=== PATIENT | male | born 1995 | race Caucasian/White ===

== ENCOUNTER 2017-10-19 21:05 | Emergency (ER) | payer SELFPAY ==
[2017-10-19 21:07] VITALS: BP 132/76; PULSE 94; RESP 18; TEMP 36.8; O2SAT 97; BMI 19.5
--- NOTE | 2017-10-19 21:20 | ED.VISSUMM ---
- ER Visit Summary Date of Service: 10/19/17 Chief Complaint: Infected tattoo History of Present Illness: The patient is a 22 M with no primary care physician. Reports that he has had a 10 to that has been worked on his left forearm for quite some time. Reports that today he noticed that there were small pustules. Reports he is a throbbing pain is 3 out of 10 severity. He denies any fever, chills, nausea, or vomiting. Physical Examination: Vitals: Stable. Afebrile. General: Well-nourished and well-developed. Head: Normocephalic atraumatic. Neck: Supple, no lymphadenopathy. No JVD. Nontender. Cardiovascular: Regular rate and rhythm. No murmurs. Respiratory: No respiratory distress. Clear to auscultation bilaterally. Abdominal: Soft, nontender, nondistended, normal bowel sounds. No guarding, rebound, or peritoneal signs. Back: Nontender. Extremities: He has approximately 5 2-3 mm pustules over the back of his left forearm. There is no surrounding induration or erythema. Skin: Normal color, no rash. Neurologic: Alert and oriented ?3. Cranial nerves II through XII are intact. Normal strength and sensation. Psych: Normal affect. Emergency Department Course and Treatment: Patient was given a dose of doxycycline. Treatment Plan: Patient will be discharged with doxycycline and Bactroban. Instructed to use warm compresses. Follow-up the [facility] in 2 days for a wound check. Return to the emergency department for any worsening symptoms. Disposition: To home in improved and stable condition. Impression: 1. Infected tattoo left forearm. This note was generated with [employer] dictation software. It may contain incorrect words, spelling, and punctuation that were not noted in review of the chart prior to signing ED Disposition - Plan for ED Patient: Disposition: Home or Assisted Living Chief Complaint: Upper Extremity Injury Instructions: ED Staph Infec Abx Tx Only Prescriptions: Doxycycline Monohydrate 100 mg PO BID #20 capsule Mupirocin Calcium [Bactroban] 30 gm TP 4X/DAY #1 tube Referrals: Jennifer Pelayo [NON-STAFF] - 2 Days for wound check
[2017-10-19] MEDS: Naproxen 250 MG Tablet 500 MG PO (21:36)
[2017-10-19] MEDS: Doxycycline 100 MG CAPSULE PO (21:36)
== END 2017-10-19 21:43 | disposition home or self-care (01) ==
PROVIDERS: Emergency Provider Emergency Medicine
DX: L08.89 Other specified local infections of the skin and subcutaneous tissue (principal); Z72.0 Tobacco use
CPT/HCPCS: 99283

== ENCOUNTER 2020-09-01 15:28 | Emergency (ER) | payer MEDICAID, SELFPAY ==
[2020-09-01 15:29] VITALS: BP 134/54; PULSE 68; RESP 16; TEMP 36.2; O2SAT 95; BMI 24.8
--- NOTE | 2020-09-01 15:40 | ED.VIS.GEN ---
History of Present Illness Chief Complaint: Upper Extremity Injury Narrative: This patient is a 25-year-old male who presents with right forearm wrist and hand pain. He complains of pain beginning in the mid forearm on the right side down to the wrist and into the fourth and fifth fingers of the right hand. He also complains of feeling like he is having some spasm. He does note that he woke when he had been sleeping with his head on his right forearm prior to the onset of symptoms. No other injury. No weakness. He reports he has had similar symptoms in the past. Past Medical History - Allergies and Home Meds Allergies/Adverse Reactions: Allergies amoxicillin trihydrate [From Augmentin] Allergy (Verified 09/01/20 15:29) Rash potassium clavulanate [From Augmentin] Allergy (Verified 09/01/20 15:29) Rash Primary Care Physician: Care Physician,No Primary [Primary Care Provider] - Past Medical History: None Smoking Status: Current every day smoker Review of Systems All systems negative except as indicated General: Denies: Fever Eyes: Denies: Visual changes - bilaterally ENT: Denies: Bilateral ear pain Cardiovascular: Denies: Chest pain Respiratory: Denies: Dyspnea Gastrointestinal: Denies: Vomiting Musculoskeletal: Reports: Extremity Pain Skin: Denies: Rash Neurological: Denies: Headache Hematologic: Denies: Easy bruising Allergy: Denies: Uticaria Physical Exam Vital Signs/Narrative: Vital Signs Temp Pulse Resp BP Pulse Ox 09/01/20 15:29 97.1 F L 68 16 134/54 H 95 Inital Vital Signs reviewed: Yes General: Well nourished Head: Normocephalic Eyes: EOMI ENT: Moist mucous membranes Neck: Supple Cardiovascular: Regular rate Respiratory: No distress Extremities: - - Patient has some mild tenderness in the right forearm he has active full range of motion of the right elbow wrist and hand he has normal strength and sensation easily palpable radial and ulnar pulses with brisk capillary refill Skin: Normal color Neurological: Alert Psychological: Normal affect Diagnostic/Tx/Re-eval - Medical Decision Making Patient's presentation is most consistent with an ulnar neuropathy. He does note that he had slept with his head resting on his right forearm which may have triggered his symptoms. We will treat supportively with anti-inflammatories and a wrist splint as needed for comfort but he was advised that if symptoms continue to follow-up as an outpatient. He is agreeable this plan and the patient was discharged. ED Disposition - Plan for ED Patient: Disposition: Home or Assisted Living Diagnosis: Ulnar neuropathy, Wrist pain Instructions: ED Ulnar Nerve Palsy Prescriptions: Naproxen [Naprosyn] 500 mg PO BID #20 tablet Prescription Printed Referrals: Care Physician,No Primary [Primary Care Provider] - Jef Stockton MD [STAFF PHYSICIAN] - Additional Instructions: Wear splint as needed for comfort. Take all medications as prescribed. If symptoms do not improve follow-up with orthopedics.
== END 2020-09-01 15:54 | disposition home or self-care (01) ==
LOC: ED 15:47
PROVIDERS: Emergency Provider Emergency Medicine
DX: G56.21 Lesion of ulnar nerve, right upper limb (principal); M25.531 Pain in right wrist; F17.200 Nicotine dependence, unspecified, uncomplicated
CPT/HCPCS: 99283

== ENCOUNTER 2020-12-13 10:28 | Emergency (ER) | payer MEDICAID, SELFPAY ==
[2020-12-13 10:29] VITALS: BP 140/98; PULSE 107; RESP 18; TEMP 36.2; O2SAT 97; BMI 21.1
--- NOTE | 2020-12-13 10:36 | RAD_ITS ---
STUDY: X-RAY - RIGHT ANKLE REASON FOR EXAM: Male, 25 years old. Medial right ankle pain following twisting injury. TECHNIQUE: 3 view(s) of the ankle. COMPARISON: None. FINDINGS: Normal visualized distal tibia and fibula. Normal medial and lateral malleoli. Normal tibiotalar articulation and ankle mortise. Normal visualized talus and calcaneus. The visualized subtalar, talonavicular, calcaneocuboid and tarsal articulations are normal. The soft tissue structures are unremarkable. RAD/Ankle min 3 Views IMPRESSION: Normal x-ray examination of the ankle. Electronically Signed: Ender Pederson MD at 11:03 EDT , Service support ,
--- NOTE | 2020-12-13 10:37 | ED.VIS.LOWEX ---
HPI History of Present Illness Chief Complaint: Lower Extremity Injury Informant: patient Narrative Narrative: Patient complains of primarily medial ankle pain. He states this has been going on a while. He works in fast food. He states he rolls his ankle several times a day and has been doing this for a while. No numbness tingling or weakness. He is never had a documented fracture. He also states he has flatfeet but he does not have pain on the sole of his feet. Walking and twisting the ankle makes it worse. Rest makes it better. No history of gout. No recent infections. Patient did not denies past medical history other than ADHD. No medications including no meds for ADHD since 18 years old. Allergy to amoxicillin/Augmentin PFSH PFSH Home Medications naproxen 500 mg PO BID #14 tab 12/13/20 [Rx Last Taken Unknown] Allergy/AdvReac Type Severity Reaction Status Date / Time amoxicillin trihydrate Allergy Rash Verified 12/13/20 10:29 [From Augmentin] potassium clavulanate Allergy Rash Verified 12/13/20 10:29 [From Augmentin] Social History Smoking Status: Current every day smoker tobacco type: cigarettes ROS ROS ED Constitutional Constitutional ED: Denies chills or fever(s) Cardiovascular Cardiovascular: Denies chest pain Respiratory/Chest Respiratory/Chest: Denies cough or dyspnea Musculoskeletal Musculoskeletal: Reports arthralgias; Denies back pain or neck pain Integumentary Denies Abrasions or rash Neurologic Neurologic: Denies paresthesias or weakness Hematologic/Lymphatic Hematologic/Lymphatic: Denies easy bleeding or easy bruising EXAM Physical Exam Const Vital Signs: 12/13/20 10:29 Temperature 97.1 F L Temperature Source Temporal Pulse Rate 107 H Respiratory Rate 18 Blood Pressure 140/98 H Blood Pressure Mean 112 Pulse Ox 97 Oxygen Delivery Method Room Air Positive well nourished and well developed General Appearance ED: well developed HEENT normocephalic and atraumatic Resp normal respiratory effort Extremity normal to inspection Extremity Narrative: Patient does have some tenderness to the posterior edge of the knee medial malleolus. No swelling. No abrasions or redness. No pain with passive motion. No tenderness on the sole of the foot. No fifth metatarsal tenderness. Achilles is intact, palpable, normal Hernandez's test. General Extremety ED: Negative for cyanosis or edema General Extremity: Negative for cyanosis or edema Neuro Sensorium / Orientation: alert; Negative for confused MDM MDM MDM Narrative Medical decision making narrative: Three-view x-ray of patient's right ankle looked at by me and read by radiology shows no acute process. His ankle is stable to inversion eversion and drawer. There is some mild tenderness medially. Achilles is also intact. I will give the patient an Aircast to add stability to him. Because he rolls this ankle so frequently, I have recommended orthopedic follow-up. I will also give him a short prescription of Naprosyn for soreness. Radiography Diagnostic Testing: Radiology Impression Ankle X-Ray 12/13/20 10:36 IMPRESSION: Normal x-ray examination of the ankle. Electronically Signed: Ender Pederson MD at 11:03 EDT , Service support , Discharge Plan Triage Chief Complaint: Lower Extremity Injury ED Provider: Victor M Holman Dx/Rx/DC Orders Clinical Impression: Injury of right ankle Instructions: ED Ankle Sprain (Adult) Prescriptions: New naproxen 500 mg tablet 500 mg PO BID Qty: 14 RF: 0 Primary Care Provider: Care Physician,No Primary Referrals: Sita Degroot DPM [STAFF PHYSICIAN] - 3-5 Days Care Physician,No Primary [Primary Care Provider] - Disposition Disposition: Home, Self Care
== END 2020-12-13 11:46 | disposition home or self-care (01) ==
PROVIDERS: Emergency Provider Emergency Medicine
DX: S99.911A Unspecified injury of right ankle, initial encounter (principal); F17.210 Nicotine dependence, cigarettes, uncomplicated; X50.1XXA Overexertion from prolonged static or awkward postures, initial encounter
CPT/HCPCS: 73610; 99283

== ENCOUNTER 2021-11-01 22:10 | Emergency (ER) | payer MEDICAID, SELFPAY ==
[2021-11-01 22:11] VITALS: BP 119/76; PULSE 115; RESP 16; TEMP 36.9; O2SAT 98; BMI 21.2
--- NOTE | 2021-11-01 22:30 | ED.VIS.LOWEX ---
HPI History of Present Illness HPI Narrative: 19-year-old male seen past medical history about an hour ago he was playing basketball came down and injured his ankle primarily complaining of pain in the right lateral posterior ankle. Able to ambulate. No prior significant history of surgery to that ankle. No other injuries. Chief Complaint: Lower Extremity Injury Informant: patient Occured/Mechanism Mechanism/Context: Yes injury Onset/Context/Timing Onset: Today and Hours Context: Sudden Onset Timing: Continuous Quality of Pain: Sharp Current Severity: Mild Maximum Severity: Mild Associated Symptoms Associated Symptoms: Negative for Parasthesia, Weakness and Loss of Funtion Narrative Narrative: 25-year-old male right ankle injury. Playing basketball. Twisted it. Prior similar symptoms: No Recent Illness/Hospitalization: No PFSH PFSH Medical History Anxiety Depression Smoker Home Medications naproxen 500 mg PO BID #14 tab 12/13/20 [Rx Last Taken Unknown] Allergy/AdvReac Type Severity Reaction Status Date / Time amoxicillin trihydrate Allergy Rash Verified 11/01/21 22:11 [From Augmentin] potassium clavulanate Allergy Rash Verified 11/01/21 22:11 [From Augmentin] Social History Smoking Status: Current every day smoker tobacco type: cigarettes ROS ROS ED ROS Narrative No recent illness. Review of Systems ROS Unobtainable: Denies due to encephalopathy Constitutional Constitutional ED: Denies fever(s) Eyes Eyes: Denies change in vision ENT ENT ED: Denies ear pain Cardiovascular Cardiovascular: Denies chest pain Respiratory/Chest Respiratory/Chest: Denies cough or dyspnea Gastrointestinal Gastrointestinal: Denies abdominal pain Genitourinary Genitourinary ED: Denies dysuria Musculoskeletal Musculoskeletal: Denies myalgias Integumentary Denies rash Neurologic Neurologic: Denies headache(s) Psychiatric Psychiatric: Denies depression Endocrine Endocrinology: Denies polyuria Hematologic/Lymphatic Hematologic/Lymphatic: Denies easy bruising Allergic/Immunologic Allergic/Immunologic ED: Denies urticaria EXAM Physical Exam Narrative Exam Narrative: 26-year-old male no acute distress. Vital signs stable afebrile. H EENT exam unremarkable atraumatic. C-spine nontender. Lungs are clear. Heart regular rate and rhythm. Chest wall nontender. Abdomen soft nontender. Pelvic girdle intact. Moving all 4 extremities. Neurovascular intact. No deformity. No significant swelling. Normal range of motion. Right hip and knee are nontender. Right lateral ankle and posterior ankle mild tenderness. No swelling. Achilles tendon intact. Dorsi and plantar flexion intact. DP pulse intact. No gross bony deformities. No significant swelling. Foot nontender able to wiggle his toes. Normal touch sensation. Const Vital Signs: 11/01/21 22:11 Temperature 98.5 F Temperature Source Temporal Pulse Rate 115 H Respiratory Rate 16 Blood Pressure 119/76 Blood Pressure Mean 90 Pulse Ox 98 Oxygen Delivery Method Room Air Positive well nourished and well developed; Negative for obese, cachectic, contractures or unkempt General Appearance ED: well developed and NAD; Negative for unkempt, cachectic or contractures Nutritional Appearance: Negative for cachectic or obese HEENT Reports moist mucous membranes normocephalic and atraumatic; Negative for trauma or tenderness Eyes PERRL Neck full ROM and supple Thyroid: Negative for tender Chest Wall inspection of chest normal and palpation of chest normal Resp normal respiratory effort, no retractions and clear to auscultation bilaterally Auscultation: Negative for rales, rhonchi or wheezes Cardio regular rate, regular rhythm, S1 normal heart sound, S2 normal heart sound and no murmurs GI non-tender, non-distended and no masses Auscultation: normoactive bowel sounds Palpation: soft; Negative for tender, guarding or rebound tenderness present Back/Spine no CVA tenderness General Back: CVA tenderness Cervical Spine: Negative for cervical spine tenderness Thoracic Spine / Upper Back: Negative for thoracic spinal tenderness Lumbar Spine / Lower Back: Negative for lumbar spinal tenderness Extremity normal to inspection and full ROM General Extremety ED: Negative for cyanosis or edema General Extremity: Negative for cyanosis or edema Neuro oriented x3 and moves all extremities Sensorium / Orientation: alert, oriented to person, oriented to place and oriented to time; Negative for orientation impaired, confused, lethargic or stuporous Motor Exam: strength 5/5 throughout Psych mental status grossly normal Appearance: Negative for unkempt Mood & Affect: Negative for anxious Skin no wounds Lesions: no lesions Rashes: no rashes Trauma: Negative for abrasion or laceration MDM MDM MDM Narrative Medical decision making narrative: 26-year-old male with ankle injury clinically is benign x-ray being obtained. Repeat exam patient doing well at 10:50 PM. I went over his x-rays. He will be discharged home. Treated as an ankle sprain. Per patient request he was given an Aircast and an Haris wrap. Radiography Diagnostic Testing: Right ankle x-ray, 3 views, interpreted by myself shows no acute abnormality. No fracture. No dislocation. Discharge Plan Triage Chief Complaint: Lower Extremity Injury ED Provider: Michael Suarez Dx/Rx/DC Orders Clinical Impression: Right ankle sprain Instructions: ED Ankle Sprain (Adult) Prescriptions: No Action naproxen 500 mg tablet 500 mg PO BID Qty: 14 RF: 0 Primary Care Provider: Care Physician,No Primary Referrals: Giovanny García MD [STAFF PHYSICIAN] - 1 Week if not improving Care Physician,No Primary [Primary Care Provider] - Activity Restrictions/Additional Instructions: Ice and elevate your ankle to decrease pain and swelling. Slowly increase activity as tolerated. Motrin for pain and swelling Tylenol for pain. Follow-up if not improving. Disposition Disposition: Home, Self Care
[2021-11-01] MEDS: Ibuprofen 600 MG Tablet PO (22:34)
--- NOTE | 2021-11-01 22:34 | RAD_ITS ---
EXAM: XR RIGHT ANKLE COMPLETE, 3 OR MORE VIEWS CLINICAL INDICATION: twisted TECHNIQUE: Frontal, lateral and oblique views of the right ankle. This report was created using [employer] report generation technology. COMPARISON: None. FINDINGS: BONES/JOINTS: Tibiotalar joint effusion. No acute or healing fracture or malalignment. No sclerotic or destructive changes observed. SOFT TISSUES: Unremarkable. No soft tissue swelling or gas. No radiopaque foreign body. RAD/Ankle min 3 Views IMPRESSION: Tibiotalar joint effusionacute without or healing fracture or malalignment. Electronically Signed: Man Quick MD at 23:30 EDT ,
[2021-11-01 23:00] VITALS: BP 120/70; PULSE 74; RESP 16; O2SAT 97
== END 2021-11-01 23:00 | disposition home or self-care (01) ==
PROVIDERS: Emergency Provider Emergency Medicine; Visit Provider Emergency Medicine
DX: S93.401A Sprain of unspecified ligament of right ankle, initial encounter (principal); F17.210 Nicotine dependence, cigarettes, uncomplicated; Y93.67 Activity, basketball
CPT/HCPCS: 73610; 99283

== ENCOUNTER 2022-07-19 13:09 | Emergency (ER) | payer MEDICAID, SELFPAY ==
[2022-07-19 13:09] VITALS: BP 132/106; PULSE 126; RESP 18; TEMP 37.1; O2SAT 99; BMI 22.1
[2022-07-19 13:19] VITALS: BP 144/95; PULSE 117; RESP 18; TEMP 37.1; O2SAT 100
[2022-07-19] MEDS: 0.9% Normal Saline 1,000 ML 1000 ML IV (13:34)
[2022-07-19] MEDS: Ondansetron 4 MG/2 ML Vial IV (13:35)
--- NOTE | 2022-07-19 13:47 | EX.ED.DYSGE1 ---
HPI History of Present Illness Chief Complaint: General Illness Informant: patient and spouse/S.O. Narrative Narrative: 1 week history of fevers myalgias vomiting diarrhea. Children diagnosed with both strep and influenza. Significant other had flulike symptoms that resolved after a day. He has been having persistent systems unable to keep fluids down. No recent antibiotics. No past med history. Allergies to Augmentin. PFSH PFSH Medical History Anxiety Depression Smoker Home Medications ondansetron 4 mg disintegrating tablet 4 mg PO Q8H PRN PRN Nausea #20 tabs 07/19/22 [Rx Last Taken Unknown] Allergy/AdvReac Type Severity Reaction Status Date / Time amoxicillin trihydrate Allergy Rash Verified 07/19/22 13:14 [From Augmentin] potassium clavulanate Allergy Rash Verified 07/19/22 13:14 [From Augmentin] Social History Smoking Status: Current every day smoker tobacco type: cigarettes ROS ROS ED Constitutional Constitutional ED: Reports fever(s); Denies chills or sweats Eyes Eyes: Denies change in vision ENT ENT ED: Denies dysphagia or sore throat Cardiovascular Cardiovascular: Denies chest pain, leg edema, palpitations or racing heartbeat Respiratory/Chest Respiratory/Chest: Denies cough, dyspnea or dyspnea on exertion Gastrointestinal Gastrointestinal: Reports diarrhea, nausea and vomiting; Denies abdominal pain Genitourinary Genitourinary ED: Denies dysuria, hematuria or urinary frequency Musculoskeletal Musculoskeletal: Reports myalgias; Denies back pain, extremity pain or neck pain Integumentary Denies rash or wounds Neurologic Neurologic: Reports headache(s); Denies paresthesias or weakness EXAM Physical Exam Const Vital Signs: 07/19/22 13:09 07/19/22 13:15 07/19/22 13:19 Temperature 98.7 F Temperature Source Temporal Pulse Rate 126 H 117 H Respiratory Rate 18 18 Respiratory Effort Normal Non-Labored Respiratory Pattern Normal Blood Pressure 132/106 H 144/95 H Blood Pressure Mean 114 111 Pulse Ox 99 100 Oxygen Delivery Method Room Air Room Air 07/19/22 13:19 07/19/22 14:17 07/19/22 14:37 Temperature 98.7 F 98.1 F Temperature Source Oral Oral Pulse Rate 117 H 110 H 110 H Respiratory Rate 18 18 18 Respiratory Effort Respiratory Pattern Blood Pressure 144/95 H 125/62 H 128/73 H Blood Pressure Mean 111 83 Pulse Ox 100 100 99 Oxygen Delivery Method Room Air Room Air Positive well nourished and well developed General Appearance ED: well developed and NAD HEENT HEENT Narrative: Mild dry mucosal membranes. normocephalic and atraumatic Eyes PERRL, EOMs intact bilaterally and conjunctivae normal General Eye ED: Yes normal appearance of both eyes Neck no lymphadenopathy and supple Neck Narrative: No meningismus General: Negative for tenderness Chest Wall Chest: Negative for tenderness Resp normal respiratory effort and normal air movement Effort and Inspection: symmetric chest movement; Negative for respiratory distress Cardio regular rhythm and no murmurs Rate: tachycardic Peripheral Pulses: pulses 2+ throughout GI normal to inspection, nondistended, normoactive bowel sounds and non-tender GI Narrative: Negative Norman's or McBurney's tenderness. Palpation: Negative for guarding or rebound tenderness present Back/Spine no CVA tenderness and no thoracic nor lumbar tenderness Extremity normal to inspection General Extremety ED: Negative for edema or tenderness General Extremity: Negative for edema Neuro oriented x3, CN's II-XII intact bilaterally and no sensory deficits noted Sensorium / Orientation: awake and alert Skin no rashes or lesions noted and no wounds MDM MDM MDM Narrative Medical decision making narrative: Interventions / MDM: Differential diagnosis: Viral syndrome, influenza, COVID, gastroenteritis Diagnosis considered but do not suspect: C. difficile, however no recent antibiotics or exposures. My EKG interpretation: N/A Imaging independently reviewed and interpreted by myself: N/A External documents reviewed: N/A Test considered but not ordered:N/A ED course: Patient tachycardic slight dry mucosal membranes clinical dehydration. IV established fluids Zofran. Electrolytes obtain all normal. Clinically improved on reevaluation. Discussed more likely influenza with positive testing from his children at home that was reported. Prescription for Zofran. Tylenol given for his headache. Has no meningismus. He will continue oral fluids at home. Return precautions. All questions were answered. Re-evaluation: stable and improved Disposition discussed with patient/family/significant other: Patient and significant other Case discussed with consulting clinician: N/A Lab Data Labs: Laboratory Results - last 24 hr 07/19/22 13:28 Sodium 140 Potassium 4.5 Chloride 104 Carbon Dioxide 30.0 Anion Gap 6 BUN 12 Creatinine 0.99 Estim Creat Clear Calc 103.70 Est GFR (MDRD) Af Amer 119 Est GFR (MDRD) Non-Af 98 BUN/Creatinine Ratio 12.2 Glucose 115 H Calcium 9.2 Discharge Plan Triage Chief Complaint: General Illness ED Provider: Anton Guerra Dx/Rx/DC Orders Clinical Impression: Nausea vomiting and diarrhea, Dehydration, Viral syndrome Instructions: ED Viral Syndrome (Adult), ED Vomiting and Diarrhea ... Prescriptions: New ondansetron [ondansetron] 4 mg tablet,disintegrating 4 mg PO Q8H PRN PRN (Reason: Nausea) Qty: 20 0RF Primary Care Provider: Care Physician,No Primary Referrals: Jennifer Pelayo [Non-Staff] - 1-2 Weeks Care Physician,No Primary [Primary Care Provider] - Disposition Disposition: Home, Self Care Discharge Date/Time: 07/19/22 14:41
[2022-07-19 13:48] LABS: Anion Gap 6 (5-15); BUN 12 mg/dL (7-18); BUN/Creat Ratio 12.2 RATIO (10-20); Calcium,Total 9.2 mg/dL (8.5-10.1); Chloride 104 mmol/L (98-107); Creatinine, Serum 0.99 mg/dL (0.70-1.30); EST Glomerular Filtration Rate 98 mL/min (>60); Est Glom Filt Rate - Afr Amer 119 mL/min (>60); Glucose 115 mg/dL (74-106); Potassium 4.5 mmol/L (3.5-5.1); Sodium Level 140 mmol/L (136-145)
[2022-07-19] MEDS: Acetaminophen 500 MG Tablet 1000 MG PO (14:16)
[2022-07-19 14:17] VITALS: BP 125/62; PULSE 110; RESP 18; TEMP 36.7; O2SAT 100
[2022-07-19 14:37] VITALS: BP 128/73; PULSE 110; RESP 18; O2SAT 99
== END 2022-07-19 14:41 | disposition home or self-care (01) ==
PROVIDERS: Emergency Provider Emergency Medicine; Visit Provider Emergency Medicine
DX: R11.2 Nausea with vomiting, unspecified (principal); R19.7 Diarrhea, unspecified; E86.0 Dehydration; B34.9 Viral infection, unspecified; F17.210 Nicotine dependence, cigarettes, uncomplicated
CPT/HCPCS: 80048; 96361; 96374; 99284; J7030; A4216; J2405

== ENCOUNTER 2022-10-07 15:08 | Emergency (ER) | payer MEDICAID, SELFPAY ==
[2022-10-07 15:09] VITALS: BP 130/118; PULSE 130; RESP 24; TEMP 35.8; O2SAT 99; BMI 22.2
[2022-10-07] MEDS: Diphth,Pertuss(Acell),Tet Vac 0.5 ML Vial IM (15:40)
[2022-10-07] MEDS: Ondansetron 4 MG/2 ML Vial IV (15:43)
[2022-10-07] MEDS: Morphine 4 MG/ML Syringe IV ×4 (15:43→18:44)
[2022-10-07] MEDS: Clindamycin 600 MG/50 ML BAG 100 MG IV (15:50)
--- NOTE | 2022-10-07 15:58 | EDS_ITS ---
HPI History of Present Illness Chief Complaint: Trauma Informant: patient Narrative Narrative: Patient cut the tip of his right dominant hand long finger and the mechanism of a rocking chair approximately half an hour before arrival. He did bring in the tip but it is set on ice and is partially frozen. Last tetanus was greater than 5 years ago. He has allergies to amoxicillin. Denies any other injury. No active bleeding. PFSH PFSH Medical History Anxiety Depression Smoker Home Medications ondansetron 4 mg disintegrating tablet 4 mg PO Q8H PRN PRN Nausea #20 tabs 07/19/22 [Rx Last Taken Unknown] Allergy/AdvReac Type Severity Reaction Status Date / Time amoxicillin trihydrate Allergy Rash Verified 10/07/22 15:08 [From Augmentin] potassium clavulanate Allergy Rash Verified 10/07/22 15:08 [From Augmentin] Social History Smoking Status: Current every day smoker tobacco type: cigarettes ROS ROS ED Constitutional Constitutional ED: Denies chills or fever(s) ENT ENT ED: Denies sore throat Cardiovascular Cardiovascular: Reports other Details: Heart was racing when he came in but he is very nervous and in pain. ; Denies chest pain or palpitations Respiratory/Chest Respiratory/Chest: Denies cough Gastrointestinal Gastrointestinal: Denies nausea or vomiting Musculoskeletal Musculoskeletal: Reports other Details: See history of present illness ; Denies myalgias Integumentary Reports other Details: See history of present illness Neurologic Neurologic: Denies paresthesias Hematologic/Lymphatic Hematologic/Lymphatic: Denies easy bleeding or easy bruising Allergic/Immunologic Allergic/Immunologic ED: Denies urticaria EXAM Physical Exam Narrative Exam Narrative: Patient awake alert sitting in bed. He looks uncomfortable. HEENT shows no trauma. Mucous membranes are moist Neck is supple no tenderness Heart is regular about 105 right now. No murmur. Lungs are clear bilaterally. Saturations are normal at 99% on room air showing no hypoxia. Abdomen soft nontender. Extremities are normal other than right hand. Right hand has a bandage on it. This was moistened and gently removed. He has a loss of circumferential skin of his right long finger. This is from approximately the distal interphalangeal joint distally. This involves the nail and all the skin. Yet the tuft and bone is still present. This was a degloving injury of the outer layer of the epidermis and the likely large portion of the dermis. The tuft itself was brought in by the patient. It was in a cup of ice and somewhat frozen already. This was removed. It was rinsed with sterile saline. I then placed this into tissues and said it above the ice just to keep it cool. Const Vital Signs: 10/07/22 15:09 10/07/22 17:29 10/07/22 18:00 Temperature 96.5 F L Temperature Source Temporal Pulse Rate 130 H Respiratory Rate 24 H Blood Pressure 130/118 H 129/90 H 97/84 H Blood Pressure Mean 122 103 88 Pulse Ox 99 Oxygen Delivery Method Room Air MDM MDM MDM Narrative Medical decision making narrative: I called to our plastics on-call and spoke directly with the physician but they do not do hand surgery. I have called [facility] telemetry hand consult service. They are going to remote evaluate the individual. [facility] evaluated the patient with Dr. Andrews. He would like to see the patient in the emergency department. He may consider doing surgery tonight. We will transfer the finger kept cool but not frozen with the patient. The patient initially did not want to go. He was too nervous. We have finally been able to discuss with him and come up with a solution that if the ambulance will take his significant other he will go down. We have made calls and we v erified that the ambulance is willing to take his significant other so now we can get him down there. My independent interpretation the patient's three-view x-ray of his right hand shows a slight minimally displaced fracture of the distal tuft and the soft tissue loss. This is consistent with final reading. Of note, before the patient left he did eat [place] fries. He was told not to eat any food because he might have surgery. He evidently just needed to eat some [place] fries. Radiography Diagnostic Testing: Clinical Impression(s) from Imaging Studies Hand X-Ray 10/07/22 16:00 IMPRESSION: Prominent soft tissue loss is seen of the tip of the third digit. Nondisplaced fractures are seen of the tuft of the distal third digit. Electronically Signed: Pratik Almeida MD at 16:31 EDT , Discharge Plan Triage Chief Complaint: Trauma Other Complaint: Laceration ED Provider: Victor M Holman Dx/Rx/DC Orders Clinical Impression: Degloving injury of finger Prescriptions: No Action ondansetron [ondansetron] 4 mg tablet,disintegrating 4 mg PO Q8H PRN PRN (Reason: Nausea) Qty: 20 0RF Primary Care Provider: Care Physician,No Primary Referrals: Care Physician,No Primary [Primary Care Provider] - Disposition Disposition: Acute Care Hospital Discharge Location: [facility] Discharge Date/Time: 10/07/22 19:00
--- NOTE | 2022-10-07 16:00 | RAD_ITS ---
STUDY: X-RAY - RIGHT HAND REASON FOR EXAM: Male, 27 years old. trauma TECHNIQUE: 3 view(s) of the hand. COMPARISON: None. FINDINGS: Prominent soft tissue loss is seen of the tip of the third digit. Cannot determine whether the tuft of the distal third phalanx is exposed. Nondisplaced fractures are seen of the tuft of the distal third digit. No gross foreign bodies. No other acute abnormalities. Normal radiocarpal articulation. Normal distal radioulnar joint. Normal visualized carpal bones. Normal carpal articulations Normal carpometacarpal articulation of the thumb. Normal second through fifth carpometacarpal joints. Normal metacarpi. Normal metacarpophalangeal joint of the thumb. Normal interphalangeal joint of the thumb. Normal proximal and distal phalanges of the thumb. Normal metacarpophalangeal joints of the second through fifth fingers. Normal proximal and distal interphalangeal joints of the second through fifth fingers. Normal phalanges of the second fourth, fifth fingers. RAD/Hand Min 3 Views IMPRESSION: Prominent soft tissue loss is seen of the tip of the third digit. Nondisplaced fractures are seen of the tuft of the distal third digit. Electronically Signed: Pratik Almeida MD at 16:31 EDT ,
[2022-10-07 17:29] VITALS: BP 129/90
--- NOTE | 2022-10-07 17:52 | ED.RN ---
ROSEMARY RN AND THIS RN WRAP PT'S FINGER AND HAND IN ANTICIPATION OF TRANSPORT TO [facility] ER.
--- NOTE | 2022-10-07 17:56 | ED.RN ---
PT FINGER WRAPPED WITH XEROFORM AND ELFA FOLLOWED BY CLING AND KERLEX. PT TOLERATED WELL
[2022-10-07 18:00] VITALS: BP 97/84
--- NOTE | 2022-10-07 18:47 | ED.RN ---
PER RN ROSEMARY PT WAS EATING CHICKEN NUGGETS AND [employer] FRIES EVEN AFTER PT WAS INSTRUCTED NOT TO EAT AND DRINK MULTIPLE TIMES.
== END 2022-10-07 19:00 | disposition short-term general hospital (02) ==
PROVIDERS: Emergency Provider Emergency Medicine; Visit Provider Emergency Medicine
DX: S61.212A Laceration without foreign body of right middle finger without damage to nail, initial encounter (principal); F17.210 Nicotine dependence, cigarettes, uncomplicated; X58.XXXA Exposure to other specified factors, initial encounter
CPT/HCPCS: 73130; 90715; 96365; 96372; 96375; 96376; 99285; J7030; J2405